=== PATIENT | male | born 1970 | race Caucasian/White ===

== ENCOUNTER 2020-01-02 12:37 | Emergency (ER) | payer BC ==
[~2020-01-02] VITALS: Ht 170.2 cm; Wt 104.3 kg
--- NOTE | 2020-01-02 12:50 | NUR ---
patient came in to the er c/o left lower rib pain, on room air, breathing evenly and unlabored. connected to the monitor and pulse ox. kept comfortable, will continue to monitor accordingly.
--- NOTE | 2020-01-02 13:59 | NUR ---
Patient discharged to home in stable condition. Written and verbal after care instructions given. Patient verbalizes understanding of instruction.
[2020-01-02 14:02] VITALS: BP 130/68
== END 2020-01-02 14:02 | disposition home or self-care (01) ==
LOC: ER 12:38
DX: S22.32XA Fracture of one rib, left side, initial encounter for closed fracture (principal); X58.XXXA Exposure to other specified factors, initial encounter; Y93.89 Activity, other specified; Y92.89 Other specified places as the place of occurrence of the external cause; Y99.8 Other external cause status
CPT/HCPCS: 71100; 99283; A6403